=== PATIENT | male | born 1950 | race Caucasian/White ===

== ENCOUNTER → 2018-06-03 07:12 | Outpatient (CLI) | payer MEDICARE, MEDICAID, SELFPAY ==
--- NOTE | 2018-06-03 07:18 | CT_ITS ---
STUDY: LOW DOSE CT LUNG CANCER SCREENING REASON FOR EXAM: Male, 67 years old. History of 130 pack-year smoker. RADIATION DOSAGE (If Supplied By Facility): CTDIvol = ( 4.02 ) mGy, DLP = ( 133.91 ) mGycm TECHNIQUE: No contrast was administered. Low dose technique was utilized (average mAS-38 and kVp 120). 1.25 mm axial source images with a slice interval of 1.25-mm were reconstructed in lung windows. 2.5 mm axial source images with a slice interval of 2.5-mm were reconstructed in lung windows. 5.0 mm axial source images with a slice interval of 5.0-mm were reconstructed in soft tissue windows. Nodule measured using lung windows on PACS and/or independent workstation with automated measurement of minimum and maximum diameter. Nodule measurement reported as average diameter rounded to the nearest whole number. Growth is defined as an increase ins size of greater than 1.5 mm. COMPARISON: None. NODULES: No suspicious nodules seen. Emphysema: Diffuse emphysematous changes with cystic changes seen in the right upper lobe. Findings suggestive of mild scarring at the lung apices slightly worse on the left side. Mild increased markings at the lung bases suggestive of scarring. There is a 4.2 cm x 1.2 cm bulla in the lateral aspect of the right middle lobe as seen on axial image #165. Endobronchial lesion: Aorta: Coronary arteries: Prior CABG. Coronary artery calcification. Other chest and abdominal findings: Degenerative changes of the thoracic spine. CT/Low Dose CT Lung Screening IMPRESSION: Lung-RADS category 2 - Continue annual screening with LDCT in 12 months. IMPORTANT NOTES FOR USE: ACR Lung-RADS Version 1.0 Assessment Categories Release Date: October 12, 2013 Category: Coded 0-4 bases on nodule(s) with highest degree of suspicion. Negative screen is defined as categories 1 and 2; a positive screen is defined as categories 3 and 4. Category 3 and 4A nodules that are unchanged on interval CT should be coded as category 2, and individuals returned to screening in 12 months. Category 4X: Category 3 or 4 nodules with additional imaging findings that increase the suspicion of lung cancer, such as spiculation, GGN that doubles in size in 1 year, enlarged lymph notes, etc. Category Modifiers: S (significant finding unrelated to lung cancer) and C (prior history of treated lung cancer) may be added to the 0-4 Lung-RADS Electronically Signed: Randell Foster MD at 15:18 EST Tel [phone], Service support ,
--- OUTSIDE RECORDS SUMMARY | 2018-09-04 11:54 | XMS RPT_ITS ---
:1950 Author Organization OHIP Care Team Providers Name Role Phone MELO WHEELER MD Admitting Unavailable MELO WHEELER MD Attending Unavailable MELO WHEELER MD Primary Care Unavailable RICK SCHULTZ MD Referring Unavailable RICK SCHULTZ MD Consulting Unavailable PROVIDER, UNKNOWN Consulting Unavailable PROVIDER, UNKNOWN Consulting Unavailable PROVIDER, UNKNOWN Consulting Unavailable MALDONADO BLANCO MD Admitting Unavailable MALDONADO BLANCO MD Attending Unavailable MALDONADO BLANCO MD Primary Care Unavailable MALDONADO BLANCO MD Consulting Unavailable PROVIDER, UNKNOWN Consulting Unavailable PROVIDER, UNKNOWN Consulting Unavailable PROVIDER, UNKNOWN Consulting Unavailable Melo Marquez Attending Unavailable Melo Marquez Referring Unavailable MALDONADO BLANCO Primary Care Unavailable PROBLEMS PROBLEMS DATE TYPE CONDITION / CODE ATTENDING STATUS SOURCE 03/16/2018 Admitting Chronic MELO WHEELER Diagnosis obstructive [facility] with (acute) Repository exacerbation / J441(ICD-10) 03/16/2018 Principle Chronic MELO WHEELER Diagnosis obstructive [facility] with (acute) Repository exacerbation / J441(ICD-10) 03/16/2018 Secondary Chronic ischemic MELO WHEELER Diagnosis [facility] I259([facility]-10[facility] Repository PROCEDURES PROCEDURES No Procedure Records FoundRESULTS RESULTS LOW DOSE CT LUNG Observed: 06/03/2018 Status: F Source: [place] [facility]CREEN[facility] 7:18 AM [facility] REPOSITORY [facility] Imaging Services [address] [place] [address] Lung Screening MR#: [id number] Acct: [id number] Name: BAKARI NOGUEIRA Rep #: [id number] : 1950 M 67 From: Randell Foster MD PCP: Maldonado Blanco Status: REG CLI Study: Low Dose CT Lung Screening Date of Exam: 06/03/18 Exam# [id number] Ordering Dr: Melo Marquez MD STUDY: LOW DOSE CT LUNG CANCER SCREENING REASON FOR EXAM: Male, 67 years old. History of 130 pack- year smoker. RADIATION DOSAGE (If Supplied By Facility): CTDIvol = ( 4.02 ) mGy, DLP = ( 133.91 ) mGycm TECHNIQUE: No contrast was administered. Low dose technique was utilized (average mAS-38 and kVp 120). 1.25 mm axial source images with a slice interval of 1.25- mm were reconstructed in lung windows. 2.5 mm axial source images with a slice interval of 2.5-mm were reconstructed in lung windows. 5.0 mm axial source images with a slice interval of 5.0-mm were reconstructed in soft tissue windows. Nodule measured using lung windows on PACS and/or independent workstation with automated measurement of minimum and maximum diameter. Nodule measurement reported as average diameter rounded to the nearest whole number. Growth is defined as an increase ins size of greater than 1.5 mm. COMPARISON: None. NODULES: No suspicious nodules seen. Emphysema: Diffuse emphysematous changes with cystic changes seen in the right upper lobe. Findings suggestive of mild scarring at the lung apices slightly worse on the left side. Mild increased markings at the lung bases suggestive of scarring. There is a 4.2 cm x 1.2 cm bulla in the lateral aspect of the right middle lobe as seen on axial image #165. Endobronchial lesion: Aorta: Coronary arteries: Prior CABG. Coronary artery calcification. Other chest and abdominal findings: Degenerative changes of the thoracic spine. CT/Low Dose CT Lung Screening IMPRESSION: Lung-RADS category 2 - Continue annual screening with LDCT in 12 months. IMPORTANT NOTES FOR USE: ACR Lung-RADS Version 1.0 Assessment Categories Release Date: October 12, 2013 Category: Coded 0-4 bases on nodule(s) with highest degree of suspicion. Negative screen is defined as categories 1 and 2; a positive screen is defined as categories 3 and 4. Category 3 and 4A nodules that are unchanged on interval CT should be coded as category 2, and individuals returned to screening in 12 months. Category 4X: Category 3 or 4 nodules with additional imaging findings that increase the suspicion of lung cancer, such as spiculation, GGN that doubles in size in 1 year, enlarged lymph notes, etc. Category Modifiers: S (significant finding unrelated to lung cancer) and C (prior history of treated lung cancer) may be added to the 0-4 Lung-RADS Electronically Signed: Randell Foster MD at 15:18 EST Tel [phone], Service support , CC: Maldonado Blanco; Melo Marquez MD Sr. Manager Marketing: Signed PULMONARY FUNCTION Observed: 04/21/2018 Status: F Source: [facility] 10:17 [facility] PULMONARY FUNCTION STUDY NAME NUMBER SEX AGE ADMIT DISC TYPE MED.RECORD# [place] BAKARI [id number] M 67 04/21/18 04/21/18 O/P [id number] ROOM: DATE OF :1950 PHYSICIAN NO.:[id number] PHYSICIAN NAME:Tabitha Blanco M.D. PHYSICIAN: The FEV1 is 1.63 liters or 53% of predicted. With bronchodilators, this improved by 14% or 220 mL to 1.85 liters or 60% of predicted. The ratio is 44% at best. Lung volumes show mild hyperinflation with increased total lung capacity to 119% of predicted. The RV/TLC ratio is slightly increased to 50%. Diffusion capacity is normal when corrected to alveolar volume. IMPRESSION: This study is consistent with a moderately severe obstructive abnormality, GOLD class II, with mild hyperinflation and air trapping and preserved diffusion capacity. In addition, a significant reactive airway disease component is present. Dictated By: Balaji Beth MD 04/23/18 08:08 JOB #: [id number] Transcribed By: liban 04/23/18 14:55 Electronically signed by: Tabitha Beth M.D. 05/15/18 17:50 PULMONARY FUNCTION STUDY JERO Ring DISCHARGE SUMMARY Observed: 03/19/2018 Status: F Source: [facility] 1:06 PM [facility] DISCHARGE SUMMARY NAME ACCOUNT SEX AGE ADMIT DISCHARGE PT MED. RECORD# NUMBER DATE DATE TYPE BAKARI NOGUEIRA [id number] Christiano 67 03/16/18 03/18/18 1 W [id number] ROOM: [facility] DATE OF : 1950 DICTATING PHYSICIAN: Melo Wheeler FINAL DIAGNOSES: 1. Chronic obstructive pulmonary disease exacerbation. 2. Chronic ischemic heart disease. 3. Anxiety. 4. Hypertension. 5. History of skin cancer with recent skin biopsy of the nose and reconstruction. 6. History of gastroesophageal reflux disease. HOSPITAL COURSE: Mr. Bakari Nogueira was admitted with COPD exacerbation. The patient has been treated with steroids as well as antibiotics. He is being sent home on 40 mg of prednisone daily and this may be tapered as his outpatient doctor sees fit. The patient is leaving with a prescription for azithromycin as well. No complications were noted during this stay. MEDICATIONS ON DISCHARGE: Please refer to the medicine reconciliation. DISCHARGE INSTRUCTIONS/PLAN: Diet; as tolerated. Activity to tolerance. Followup; he will see his primary physician in follow up who is Dr. Blanco. Dictated By: Melo Wheeler MD 03/18/18 14:34 JOB #: [id number] Transcribed By: иван 03/19/18 08:12 Electronically signed by: Tabitha Wheeler M.D. 03/19/18 13:06 Page 1 of 1 BAKARI NOGUEIRA Discharge Summary CBC Collected: 03/18/2018 Status: F Source: [facility] 5:25 AM [facility] TYPE CODE TESTS RESULT OUT OF RANGE REFERENCE UNITS LAB CBC(LOINC) CBC Result Comment: CBC-COMPLETE BLOOD COUNT LAB WBC(LOINC) 4.5 - 10.8 x 10EE3/UL WBC High 11.5 LAB RBC(LOINC) 4.50 - x 10EE6/UL 6.00 RBC 4.95 LAB HEMOGLOBIN(LOINC 13.0 - g/dl ) 17.5 HEMOGLOBIN 15.4 LAB HEMATOCRIT(LOINC 40.0 - % ) 52.0 HEMATOCRIT 43.5 LAB MCV(LOINC) 81 - 98 fl MCV 88 LAB MCH(LOINC) 27 - 33 pg MCH 31 LAB MCHC(LOINC) 32 - 36 X10 3 MCHC 35 LAB RDW/CV(LOINC) 12.0 - % 15.6 RDW/CV 13.6 LAB PLATELET(LOINC) 150 - 450 x10EE3/UL PLATELET 195 LAB MPV(LOINC) 6.4 - 10.5 fl MPV 8.3 Result Comment: AUTOMATED DIFFERENTIAL LAB NEUT %(LOINC) 46.0 - 76.0 % NEUT % 57.4 LAB LYMPH %(LOINC) 20.0 - 45.0 % LYMPH % 29.6 LAB MONOS %(LOINC) 0.0 - 10.0 % MONOS % 6.3 LAB EO %(LOINC) 0.0 - 7.0 % EO % 6.2 LAB BASO %(LOINC) 0.0 - 2.0 % BASO % 0.5 LAB Lymph #(LOINC) 0.80 - 2.80 x10EE3/U L Lymph # High 3.40 LAB Neut #(LOINC) 1.50 - 7.10 x10EE3/U L Neut # 6.60 LAB Sutter #(LOINC) 0.20 - 1.00 x10EE3/U L Sutter # 0.70 LAB EO #(LOINC) 0.00 - 0.50 x10EE3/U L EO # High 0.70 LAB Baso #(LOINC) 0.00 - 0.10 x10EE3/U L Baso # 0.10 LAB MANUAL DIFF(LOINC) MANUAL DIFF N/A LAB MORPHOLOGY(LOINC ) MORPHOLOGY N/A Result Comment: {CD] Performed By: #### [id number] #### [facility],[address] [place] [address] CMP WITH EGFR Collected: 03/18/2018 Status: F Source: [facility] 5:25 AM [facility] REPOSITORY TYPE CODE TESTS RESULT OUT OF RANGE REFERENCE UNITS LAB CMP with eGFR(INC) CMP with eGFR Result Comment: COMPREHENSIVE METABOLIC PANEL LAB SODIUM(LOINC) 136 - 145 mmol/l SODIUM 138 LAB POTASSIUM(LOINC) 3.5 - 5.1 mmol/L POTASSIUM 4.1 LAB CHLORIDE(LOINC) 98 - 107 mmol/L CHLORIDE 102 LAB CO2(LOINC) 21.0 - mmol/L 31.0 CO2 27.5 LAB GLUCOSE(LOINC) 74 - 106 mg/dl GLUCOSE 101 LAB BUN(LOINC) 6 - 20 mg/dl BUN High 27 LAB CREATININE(LOINC) 0.7 - 1.3 mg/dl CREATININE 1.1 LAB AST/SGOT(LOINC) 13 - 39 U/L AST/SGOT 21 LAB ALK PHOS(LOINC) 38 - 126 U/L ALK PHOS 44 LAB CALCIUM(LOINC) 8.6 - mg/dl 10.2 CALCIUM 9.6 LAB TOTAL 6.4 - 8.3 g/dl PROTEIN(LOINC) TOTAL PROTEIN 6.4 LAB ALBUMIN(LOINC) 3.4 - 4.8 g/dL ALBUMIN 3.8 LAB GLOBULIN(LOINC) 1.5 - 3.8 G/DL GLOBULIN 2.6 LAB A/G RATIO(LOINC) 0.9 - 1.6 A/G RATIO 1.5 LAB TOTAL BILI(LOINC) 0.0 - 1.5 mg/dl TOTAL BILI 0.4 LAB B/C RATIO(LOINC) 0 - 30 ratio B/C RATIO 25 LAB ALT/SGPT(LOINC) 10 - 40 U/L ALT/SGPT 31 LAB ANION GAP(LOINC) 10 - 20 mmol/L ANION GAP 13 LAB AGE(LOINC) years AGE 67 LAB eGFR(LOINC) 60 - 999 ML/MINUTE eGFR >60 LAB eGFR(AA)(LOINC) 60 - 999 ML/MINUTE eGFR(AA) >60 Result Comment: ACCORDING TO THE NATIONAL KIDNEY DISEASE EDUCATION PROGRAM(NKDE), A NORMAL eGFR IS A VALUE GREATER THAN OR EQUAL TO 60 ML/MIN/1.73 SQ METERS. CHRONIC KIDNEY DISEASE: <60mL/MIN/1.73 SQ METERS KIDNEY FAILURE: <15mL/MIN/1.73 SQ METERS THIS TEST SHOULD ONLY BE USED FOR PATIENTS 18 YEARS OF AGE AND OLDER. Performed By: #### [id number] #### [facility],[address] [place] [address] LIPID PROFILE Collected: 03/18/2018 Status: F Source: [facility] 5:25 AM [facility] REPOSITORY TYPE CODE TESTS RESULT OUT OF REFERENCE UNITS RANGE LAB LIPID PROFILE(LOIN C) LIPID PROFILE Result Comment: LIPID PROFILE LAB TRIGLYCERIDE(LOINC) 0 - 150 mg/dl High TRIGLYCERIDE 154 LAB CHOLESTEROL(LOINC) 0 - 200 mg/dl CHOLESTEROL 113 LAB HDL(LOINC) 40 - 60 mg/dl HDL Low 35 LAB CHOL/HDL(LOINC) 0.0 - 5.0 CHOL/HDL 3.2 LAB LDL(LOINC) 0 - 129 mg/dl LDL 47 Performed By: #### [id number] #### [facility],[address] [place] [address] PROGRESS NOTE Observed: 03/17/2018 Status: F Source: [facility]USS 8:01 PM [facility] PROGRESS NOTE NAME ACCOUNT SEX AGE ADMIT DISCHARGE PT MED. RECORD# NUMBER DATE DATE TYPE JERO [id number] Christiano 67 03/16/18 1 BAKARI Grant [id number] ROOM: [facility] DATE OF : 1950 DICTATING PHYSICIAN: Maldonado Blanco DATE OF SERVICE: March 17, 2018 SUBJECTIVE: The patient was feeling overall better; although, when he was walking the hallway by the time he came back to his room he was wheezing and he was short of breath. His oxygen saturation was 93%. He denies any chest pain. OBJECTIVE: No acute distress, well-developed, well-nourished. Blood pressure is 133/80, heart rate 66, respiratory rate 16, temperature 98.4, oxygen saturation 92% on room air. Skin is warm and dry. Lungs: Symmetrical, equal lung expansion, diminished breath sounds bilaterally, clear to auscultation, respiratory mildly increased. Heart is regular rate and rhythm. DIAGNOSTIC DATA: Laboratory data: WBCs 11.3, hemoglobin 15.3, hematocrit 45.1, platelet count 203,000. Sodium 139, potassium 3.8, BUN 27, creatinine 1.0, glucose 103. ASSESSMENT/PLAN: 1. Chronic obstructive pulmonary disease exacerbation, gradually improving. Continue current treatment with ceftriaxone, Zithromax, prednisone, and encourage Acapella and incentive spirometer. Also, we will support with oxygen supplementation to maintain O2 saturation more than 92%. 2. Lower respiratory tract infection likely the reason for the patient's chronic obstructive pulmonary disease exacerbation. We will continue current treatment with ceftriaxone and Zithromax. 3. Prerenal azotemia today with a relative hypokalemia. We will give the patient potassium supplementation with a goal potassium more than 4. 4. Above was discussed with the patient. Dictated By: Maldonado Blanco MD 03/17/18 13:04 JOB #: [id number] Transcribed By: am 03/17/18 14:53 Electronically signed by: Tabitha Blanco M.D. 03/17/18 20:01 Page 1 of 2 BAKARI NOGUEIRA Progress Note Page 2 of 2 BAKARI NOGUEIRA Progress Note HISTORY AND PHYSICAL Observed: 03/17/2018 Status: F Source: [facility] 10:47 AM [facility] HISTORY & PHYSICAL NAME ACCOUNT SEX AGE ADMIT DISCHARGE PT MED. RECORD# NUMBER DATE DATE TYPE JERO [id number] Christiano 67 03/16/18 1 BAKARI Grant [id number] ROOM: [facility] DATE OF : [birth year] DICTATING PHYSICIAN: Maldonado Blanco CHIEF COMPLAINT: Increasing cough and shortness of breath. HISTORY OF PRESENT ILLNESS: The patient is a pleasant 67-year-old gentleman with a past medical history significant for COPD who was in his usual state of health until about a month ago when he started having intermittent cough. Initially, it was nonproductive, but then became productive of thick whitish and sometimes matthew sputum, associated with increasing wheezing, increasing shortness of breath, and he became very uncomfortable. He presented to the emergency room for evaluation. He mentioned a prior history for bronchitis for which he had 2 left-over tablets of azithromycin that he took last night. He did not have any fever or chills. He had no sore throat, but he had some burning sensation with his throat after coughing. He denies any chest pain. He was admitted for further evaluation and treatment. PAST MEDICAL HISTORY: (1) COPD. I reviewed the patient's prior records and the only pulmonary function that I was able to find was done back in 2008 that showed severe obstructive abnormality with maintained diffusion capacity consistent with mild to severe chronic bronchitis. There was significant reactive airway disease component. (2) Anxiety. (3) Chronic ischemic heart disease. (4) Low HDL. (5) Depression. (6) Hypercholesterolemia. (7) Hypertension. (8) Skin cancer with recent skin biopsy with reconstruction. (9) Ventral hernia. (10) Tubular adenomatous polyps of the colon. (11) GERD. (12) Previous history of blood transfusion during his open heart surgery in 2003. PAST SURGICAL HISTORY: (1) Recent skin reconstruction of the nose after removing skin cancer. (2) Coronary artery bypass graft in 2003. (3) Left arthroscopic knee surgery. (4) Umbilical hernia repair. (5) Rectal fissure surgery. MEDICATIONS: Current medications at home: (1) Losartan/hydrochlorothiazide 100/12.5 mg daily. (2) Viagra 100 mg p.r.n. (3) Zetia 10 mg daily. (4) Crestor 40 mg at bedtime. (5) Dexilant 30 mg daily. (6) Atenolol 12.5 mg daily. (7) Aspirin 81 mg daily. ALLERGIES: Intolerant to Altace. FAMILY HISTORY: Mother at age 80 from colon cancer. Father at age 62 from myocardial infarction. He also had emphysema and cancer. Sister with carotid endarterectomy. Brother with cancer. Page 1 of 3 BAKARI NOGUEIRA History & Physical SOCIAL HISTORY: The patient has 3 children. He used to smoke 3 packs of cigarettes per day for about 40 years but quit in 2003. He occasionally drinks alcohol. REVIEW OF SYSTEMS: The patient denies any dizziness, lightheadedness or headaches. He denies any chest pain. He complains of shortness of breath, wheezing, cough, productive to thick whitish and matthew sputum. He denies any GI or symptoms. He denies any lower extremity edema. The rest of the review of systems were discussed with the patient and they were negative. PHYSICAL EXAMINATION GENERAL APPEARANCE: The patient was lying down in bed comfortably in no acute distress. She is well-developed, well-nourished. VITAL SIGNS: Blood pressure 160/89, heart rate 78, respiratory rate 18, temperature 98.2. Oxygen saturation 92% on room air. Weight 245 pounds with a BMI of 34.17 kg/m2. SKIN: Skin is warm and dry. HEENT: Unremarkable. NECK: Supple. No nodes, no masses, no JVD, no carotid bruit, no thyroid enlargement. The patient has an area of bulging involving the right side of the neck that is soft, nontender and the patient did not notice the presence of that area in the past. LUNGS: Lungs are symmetrical. Equal lung expansion. Diminished breath sounds bilaterally. Clear to auscultation. Respiratory effort normal. HEART: Regular rate and rhythm. No murmurs, no gallops. ABDOMEN: Obese, soft, nontender. EXTREMITIES: No edema. NEUROLOGIC: The patient was alert and oriented x3. DIAGNOSTIC DATA: WBC 11.7, hemoglobin 16.6, hematocrit 49.8, platelets 205,000. D-dimer is 501. BNP 32, troponin 0.01. TSH 2.08. Sodium 139. Potassium 4.1. BUN 20, creatinine 1.0. Glucose 128. SGOT 25, SGPT 41. Alk phos 51, albumin 4.4. Total bilirubin 0.7. IMPRESSION/PLAN: 1. Chronic obstructive pulmonary disease exacerbation, likely secondary to lower respiratory tract infection. The patient was admitted to the medical surgical floor. He was started on prednisone 40 mg daily in addition to ceftriaxone and Zithromax. Page 2 of 3 BAKARI NOGUEIRA History & Physical We will provide oxygen supplementation to maintain O2 saturation more than 92%. The patient was encouraged to use the incentive spirometer and the Acapella. 2. Lower respiratory tract infection, likely the reason for the patient's chronic obstructive pulmonary disease exacerbation. As mentioned above, we will treat with ceftriaxone and Zithromax. 3. Right side of the neck, soft area, nontender. We will monitor progress and consider further workup including CT scan if it persists or if it becomes painful. 4. Obesity with BMI of 34.17 kg/m2, a complicating factor. 5. The rest of the medical problems are stable at this time. We will monitor the patient. 6. Hyperglycemia with blood sugar of 128. We will repeat in the a.m. and also will obtain a baseline A1c. 7. Above was discussed with the patient in detail. All questions were answered. He expressed understanding of the plan of care. Dictated By: Maldonado Blanco MD 03/16/18 19:07 JOB #: [id number] Transcribed By: [email or web address] 03/16/18 20:45 Electronically signed by: Tabitha Blanco M.D. 03/17/18 10:47 Update to H&P: [ ] No changes: I have examined the patient and reviewed the H&P and there are no changes. [ ] As previously dictated with the following changes: PHYSICIAN SIGNATURE: TIME: DATE: Page 3 of 3 BAKARI NOGUEIRA History & Physical CBC Collected: 03/17/2018 Status: F Source: [facility] 6:27 [facility] REPOSITORY TYPE CODE TESTS RESULT OUT OF RANGE REFERENCE UNITS LAB CBC(LOINC) CBC Result Comment: CBC-COMPLETE BLOOD COUNT LAB WBC(LOINC) 4.5 - 10.8 x 10EE3/UL WBC High 11.3 LAB RBC(LOINC) 4.50 - x 10EE6/UL 6.00 RBC 5.04 LAB HEMOGLOBIN(LOINC 13.0 - g/dl ) 17.5 HEMOGLOBIN 15.3 LAB HEMATOCRIT(LOINC 40.0 - % ) 52.0 HEMATOCRIT 45.1 LAB MCV(LOINC) 81 - 98 fl MCV 90 LAB MCH(LOINC) 27 - 33 pg MCH 30 LAB MCHC(LOINC) 32 - 36 X10 3 MCHC 34 LAB RDW/CV(LOINC) 12.0 - % 15.6 RDW/CV 13.5 LAB PLATELET(LOINC) 150 - 450 x10EE3/UL PLATELET 203 LAB MPV(LOINC) 6.4 - 10.5 fl MPV 8.4 Result Comment: AUTOMATED DIFFERENTIAL LAB NEUT %(LOINC) 46.0 - 76.0 % NEUT % 59.2 LAB LYMPH %(LOINC) 20.0 - 45.0 % LYMPH % 25.1 LAB MONOS %(LOINC) 0.0 - 10.0 % MONOS % 8.0 LAB EO %(LOINC) 0.0 - 7.0 % EO % High 7.4 LAB BASO %(LOINC) 0.0 - 2.0 % BASO % 0.3 LAB Lymph #(LOINC) 0.80 - 2.80 x10EE3/U L Lymph # 2.80 LAB Neut #(LOINC) 1.50 - 7.10 x10EE3/U L Neut # 6.70 LAB Sutter #(LOINC) 0.20 - 1.00 x10EE3/U L Sutter # 0.90 LAB EO #(LOINC) 0.00 - 0.50 x10EE3/U L EO # High 0.80 LAB Baso #(LOINC) 0.00 - 0.10 x10EE3/U L Baso # 0.00 LAB MANUAL DIFF(LOINC) MANUAL DIFF N/A LAB MORPHOLOGY(LOINC ) MORPHOLOGY N/A Result Comment: {CD] Performed By: #### [id number] #### [facility],[address] [place] [address] BMP WITH EGFR Collected: 03/17/2018 Status: F Source: [facility] 6:27 AM [facility] REPOSITORY TYPE CODE TESTS RESULT OUT OF RANGE REFERENCE UNITS LAB BMP with eGFR(LOINC) BMP with eGFR Result Comment: BASIC METABOLIC PANEL LAB SODIUM(LOINC) 136 - 145 mmol/l SODIUM 139 LAB POTASSIUM(LOINC) 3.5 - 5.1 mmol/L POTASSIUM 3.8 LAB CHLORIDE(LOINC) 98 - 107 mmol/L CHLORIDE 102 LAB CO2(LOINC) 21.0 - mmol/L 31.0 CO2 29.3 LAB GLUCOSE(LOINC) 74 - 106 mg/dl GLUCOSE 103 LAB BUN(LOINC) 6 - 20 mg/dl BUN High 27 LAB CREATININE(LOINC) 0.7 - 1.3 mg/dl CREATININE 1.0 LAB CALCIUM(LOINC) 8.6 - mg/dl 10.2 CALCIUM 9.5 LAB ANION GAP(LOINC) 10 - 20 mmol/L ANION GAP 12 LAB AGE(LOINC) years AGE 67 LAB eGFR(LOINC) 60 - 999 ML/MINUTE eGFR >60 LAB eGFR(AA)(LOINC) 60 - 999 ML/MINUTE eGFR(AA) >60 Result Comment: ACCORDING TO THE NATIONAL KIDNEY DISEASE EDUCATION PROGRAM(NKDE), A NORMAL eGFR IS A VALUE GREATER THAN OR EQUAL TO 60 ML/MIN/1.73 SQ METERS. CHRONIC KIDNEY DISEASE: <60mL/MIN/1.73 SQ METERS KIDNEY FAILURE: <15mL/MIN/1.73 SQ METERS THIS TEST SHOULD ONLY BE USED FOR PATIENTS 18 YEARS OF AGE AND OLDER. Performed By: #### [id number] #### [place] [id number] HGB A1C Collected: 03/17/2018 Status: F [facility] REPOSITORY TYPE CODE TESTS RESULT OUT OF RANGE REFERENCE UNITS LAB HGB 4.4 - 6.4 % A1C(LOINC) HGB A1C 5.7 Result Comment: {HB] {A1] Performed By: #### [id number] #### [address] [id number] TROPONIN Collected: 03/16/2018 Status: F [facility] REPOSITORY TYPE CODE TESTS RESULT OUT OF REFERENCE UNITS RANGE LAB TROPONIN 0.00 - 0.05 ng/ml I(LOINC) TROPONIN I 0.01 Result Comment: Elevated troponin (above the 99th percentile) usually indicates myocardial ischemia. Results must be interpreted within the clinical setting. 1.Non-ischemic pathology can also cause elevated troponin levels (e.g., acute pulmonary embolism, myocarditis, pericarditis, heart failure, intracranial injury, rhabdomyolisis, sepsis, shock and renal insufficiency). 2.Approximately 1% of healthy adults have elevated troponin levels. 3.Analytical false positive results rarely occur(due to multiple interferences such as heterophile antibodies). Performed By: #### [id number] #### [address] [address] TROPONIN Collected: 03/16/2018 Status: F Source: [facility] 1:40 PM [facility] REPOSITORY TYPE CODE TESTS RESULT OUT OF REFERENCE UNITS RANGE LAB TROPONIN 0.00 - 0.05 ng/ml I(LOINC) TROPONIN I 0.01 Result Comment: Elevated troponin (above the 99th percentile) usually indicates myocardial ischemia. Results must be interpreted within the clinical setting. 1.Non-ischemic pathology can also cause elevated troponin levels (e.g., acute pulmonary embolism, myocarditis, pericarditis, heart failure, intracranial injury, rhabdomyolisis, sepsis, shock and renal insufficiency). 2.Approximately 1% of healthy adults have elevated troponin levels. 3.Analytical false positive results rarely occur(due to multiple interferences such as heterophile antibodies). Performed By: #### [id number] #### [place] [id number] TROPONIN Collected: 03/16/2018 Status: F [facility] AM [facility] TYPE CODE TESTS RESULT OUT OF REFERENCE UNITS RANGE LAB TROPONIN 0.00 - 0.05 ng/ml I(LOINC) TROPONIN I 0.01 Result Comment: Elevated troponin (above the 99th percentile) usually indicates myocardial ischemia. Results must be interpreted within the clinical setting. 1.Non-ischemic pathology can also cause elevated troponin levels (e.g., acute pulmonary embolism, myocarditis, pericarditis, heart failure, intracranial injury, rhabdomyolisis, sepsis, shock and renal insufficiency). 2.Approximately 1% of healthy adults have elevated troponin levels. 3.Analytical false positive results rarely occur(due to multiple interferences such as heterophile antibodies). Performed By: #### [id number] #### [place] [id number] CBC Collected: 03/16/2018 Status: F [facility]:41 AM [facility] REPOSITORY TYPE CODE TESTS RESULT OUT OF RANGE REFERENCE UNITS LAB CBC(LOINC) CBC Result Comment: CBC-COMPLETE BLOOD COUNT LAB WBC(LOINC) 4.5 - 10.8 x 10EE3/UL WBC High 11.7 LAB RBC(LOINC) 4.50 - x 10EE6/UL 6.00 RBC 5.56 LAB HEMOGLOBIN(LOINC 13.0 - g/dl ) 17.5 HEMOGLOBIN 16.6 LAB HEMATOCRIT(LOINC 40.0 - % ) 52.0 HEMATOCRIT 49.8 LAB MCV(LOINC) 81 - 98 fl MCV 90 LAB MCH(LOINC) 27 - 33 pg MCH 30 LAB MCHC(LOINC) 32 - 36 X10 3 MCHC 33 LAB RDW/CV(LOINC) 12.0 - % 15.6 RDW/CV 13.4 LAB PLATELET(LOINC) 150 - 450 x10EE3/UL PLATELET 205 LAB MPV(LOINC) 6.4 - 10.5 fl MPV 8.9 Result Comment: AUTOMATED DIFFERENTIAL LAB NEUT %(LOINC) 46.0 - 76.0 % NEUT % High 80.1 LAB LYMPH %(LOINC) 20.0 - 45.0 % Low LYMPH % 11.9 LAB MONOS %(LOINC) 0.0 - 10.0 % MONOS % 3.1 LAB EO %(LOINC) 0.0 - 7.0 % EO % 4.7 LAB BASO %(LOINC) 0.0 - 2.0 % BASO % 0.2 LAB Lymph #(LOINC) 0.80 - 2.80 x10EE3/U L Lymph # 1.40 LAB Neut #(LOINC) 1.50 - 7.10 x10EE3/U L Neut # High 9.40 LAB Sutter #(LOINC) 0.20 - 1.00 x10EE3/U L Sutter # 0.40 LAB EO #(LOINC) 0.00 - 0.50 x10EE3/U L EO # High 0.60 LAB Baso #(LOINC) 0.00 - 0.10 x10EE3/U L Baso # 0.00 LAB MANUAL DIFF(LOINC) MANUAL DIFF N/A LAB MORPHOLOGY(LOINC ) MORPHOLOGY N/A Result Comment: {CD] Performed By: #### [id number] #### [facility],[address] [place], [place] [id number] TROPONIN Collected: 03/16/2018 Status: F Source: [facility] 8:41 AM [facility] REPOSITORY TYPE CODE TESTS RESULT OUT OF REFERENCE UNITS RANGE LAB TROPONIN 0.00 - 0.05 ng/ml I(LOINC) TROPONIN I 0.01 Result Comment: Elevated troponin (above the 99th percentile) usually indicates myocardial ischemia. Results must be interpreted within the clinical setting. 1.Non-ischemic pathology can also cause elevated troponin levels (e.g., acute pulmonary embolism, myocarditis, pericarditis, heart failure, intracranial injury, rhabdomyolisis, sepsis, shock and renal insufficiency). 2.Approximately 1% of healthy adults have elevated troponin levels. 3.Analytical false positive results rarely occur(due to multiple interferences such as heterophile antibodies). Performed By: #### [id number] #### [facility],[address] [place] [address] CMP WITH EGFR Collected: 03/16/2018 Status: F Source: [facility] 8:41 AM [facility] REPOSITORY TYPE CODE TESTS RESULT OUT OF RANGE REFERENCE UNITS LAB CMP with eGFR(LOINC) CMP with eGFR Result Comment: COMPREHENSIVE METABOLIC PANEL LAB SODIUM(LOINC) 136 - 145 mmol/l SODIUM 139 LAB POTASSIUM(LOINC) 3.5 - 5.1 mmol/L POTASSIUM 4.1 LAB CHLORIDE(LOINC) 98 - 107 mmol/L CHLORIDE 100 LAB CO2(LOINC) 21.0 - mmol/L 31.0 CO2 30.2 LAB GLUCOSE(LOINC) 74 - 106 mg/dl GLUCOSE High 128 LAB BUN(LOINC) 6 - 20 mg/dl BUN 20 LAB CREATININE(LOINC) 0.7 - 1.3 mg/dl CREATININE 1.0 LAB AST/SGOT(LOINC) 13 - 39 U/L AST/SGOT 25 LAB ALK PHOS(LOINC) 38 - 126 U/L ALK PHOS 51 LAB CALCIUM(LOINC) 8.6 - mg/dl 10.2 CALCIUM 10.0 LAB TOTAL 6.4 - 8.3 g/dl PROTEIN(LOINC) TOTAL PROTEIN 7.6 LAB ALBUMIN(LOINC) 3.4 - 4.8 g/dL ALBUMIN 4.4 LAB GLOBULIN(LOINC) 1.5 - 3.8 G/DL GLOBULIN 3.2 LAB A/G RATIO(LOINC) 0.9 - 1.6 A/G RATIO 1.4 LAB TOTAL BILI(LOINC) 0.0 - 1.5 mg/dl TOTAL BILI 0.7 LAB B/C RATIO(LOINC) 0 - 30 ratio B/C RATIO 20 LAB ALT/SGPT(LOINC) 10 - 40 U/L ALT/SGPT High 41 LAB ANION GAP(LOINC) 10 - 20 mmol/L ANION GAP 13 LAB AGE(LOINC) years AGE 67 LAB eGFR(LOINC) 60 - 999 ML/MINUTE eGFR >60 LAB eGFR(AA)(LOINC) 60 - 999 ML/MINUTE eGFR(AA) >60 Result Comment: ACCORDING TO THE NATIONAL KIDNEY DISEASE EDUCATION PROGRAM(NKDE), A NORMAL eGFR IS A VALUE GREATER THAN OR EQUAL TO 60 ML/MIN/1.73 SQ METERS. CHRONIC KIDNEY DISEASE: <60mL/MIN/1.73 SQ METERS KIDNEY FAILURE: <15mL/MIN/1.73 SQ METERS THIS TEST SHOULD ONLY BE USED FOR PATIENTS 18 YEARS OF AGE AND OLDER. Performed By: #### [id number] #### [place] [id number] BNP (B-TYPE NATRIURETIC Collected: 03/16/2018 Status: F Source: [facility]) 8:41 [facility] TYPE CODE TESTS RESULT OUT OF RANGE REFERENCE UNITS LAB BNP(LOINC) 1 - 100 pg/ml BNP 32 Performed By: #### [id number] #### [place] [id number] D-DIMER, QUANTITATIVE Collected: 03/16/2018 Status: F Source: [facility] 8:41 [facility] TYPE CODE TESTS RESULT OUT OF REFERENCE UNITS RANGE LAB D-DIMER, QUANTITATI VE(LOINC) D-DIMER, QUANTITATIVE Result Comment: QUANT D-DIMER LAB D-DIMER 0 - 230 ng/ml QUANT(LOINC) High D-DIMER QUANT 501 Performed By: #### [id number] #### [place] [id number] TSH Collected: 03/16/2018 Status: F Source: [facility] 8:41 [facility] TYPE CODE TESTS RESULT OUT OF RANGE REFERENCE UNITS LAB TSH(LOINC) 0.34 - 5.60 uIU/ml TSH 2.08 Performed By: #### [id number] #### [place] [address] EMERGENCY REPORT Observed: 03/16/2018 Status: F Source: [facility] 7:41 [facility] EMERGENCY ROOM REPORT NAME ACCOUNT SEX AGE ADMIT DISCHARGE PT MED. RECORD# NUMBER DATE DATE TYPE JERO, [id number] Christiano 67 03/16/18 1 BAKARI Grant [id number] ROOM: 307MO DATE OF : 1950 DICTATING PHYSICIAN: Nadya Horner CHIEF COMPLAINT: Cough and shortness of breath. HISTORY OF PRESENT ILLNESS: This is a 67-year-old gentleman with extensive remote past medical history of smoking, 40 pack year history, presenting for evaluation of cough, wheezing, and shortness of breath. The patient states that he has had some wheezing and shortness of breath over the last week to 2 weeks. He states that over the last 5 to 7 days he has developed a thick cough productive of yellow to brown phlegm. He states that over the last 24 hours he has developed these coughing fits at home where he feels as if he is unable to catch his breath and pass out because of how hard he is coughing. The patient states that he does not smoke any longer. He states he does have a history of bronchitis and is concerned that this is what was happening so he took 2 tablets of azithromycin last night, which he had left over at home from a previous prescription. He denies fever or chills. He denies any chest pain other than a burning sensation in his throat after these coughing fits. He denies any abdominal pain, nausea or vomiting. The patient denies any history of heart failure, denies any recent weight gain. PAST MEDICAL HISTORY: Significant for hypertension, hyperlipidemia, and remote smoking history. The patient without formal diagnosis of COPD. ALLERGIES: The patient is allergic to Altace. PHYSICAL EXAMINATION: This is a patient who appears to be of stated age sitting comfortably on the cot, noted to be in no acute distress. Vitals: Blood pressure is 160/113, pulse 94 beats per minute, respiratory rate 20. The patient noted to be 87% on room air, 2 liters require to maintained saturation to 95%. The patient is afebrile at 99.1. The patient's equals are equal, round, and reactive to light and extraocular movements are intact. Oropharynx is clear, no exudate or erythema. He does have a large scar to the nose, which he states he is status post reconstruction from skin cancer. The patient without JVD, full range of motion without eliciting pain. Heart is regular rate and rhythm, no murmurs, rubs, or gallops. The patient has end-expiratory wheezing to all lung greenwood. No rales or rhonchi appreciated. No chest tenderness on examination. Abdomen is protuberant, but soft and without tenderness. No rebound or guarding. The patient is moving all 4 extremities. He has good capillary refill and strong pulses to extremities x4. DIAGNOSTIC DATA: Chest x-ray obtained that shows hyperinflation without acute Page 1 of 2 BAKARI NOGUEIRA Emergency Room Report consolidation. EMERGENCY DEPARTMENT COURSE AND TREATMENT: This is a 67-year-old gentleman who presents for evaluation of cough and shortness of breath. The patient was found to be hypoxic on room air on initial arrival. He was placed on 2 liters by nasal cannula with improved pulse oximetry. The patient was given DuoNeb x2 and prednisone in the emergency department. Chest x-ray obtained that shows findings as above. On reevaluation, the patient does feel somewhat improved. We did attempt weaning from oxygen in the emergency department; however, the patient was noted to desaturation again to 87% on room air. DIAGNOSES: 1. Hypoxia. 2. Bronchitis. PLAN/DISPOSITION: At this time, we did discuss recommendation for admission for antibiotics, scheduled breathing treatments, and steroids. The patient was agreeable with this plan. He will be started on Rocephin and azithromycin in the emergency department. Admitting hospitalist called who did accept admission at this time. The patient to be admitted to [facility] in stable condition. Dictated By: Nadya Horner MD 03/16/18 07:20 JOB #: [id number] Transcribed By: am 03/16/18 12:09 Electronically signed by: E-SIGN: DR. NADYA HORNER M.D. 03/25/18 03:18 Page 2 of 2 BAKARI NOGUEIRA Emergency Room Report EMERGENCY REPORT Observed: 03/16/2018 Status: F Source: [facility] 7:41 AM [facility] EMERGENCY ROOM REPORT NAME ACCOUNT SEX AGE ADMIT DISCHARGE PT [facility]. RECORD# NUMBER DATE DATE TYPE JERO [id number] Christiano 67 03/16/18 1 BAKARI Grant [id number] ROOM: [facility] DATE OF : 1950 DICTATING PHYSICIAN: Nadya Horner CHIEF COMPLAINT: Shortness of breath and cough. HISTORY OF PRESENT ILLNESS: This is a 67-year-old gentleman with an extensive past medical history of smoking, recently quit, but prior to that, a 40 pack year history, presenting for evaluation of cough and shortness of breath. Patient states that he has felt as if he was wheezing for a while and elaborates that it has been 1 month. He states that he has had progressively worsening shortness of breath over the last couple days with significant cough productive of thick yellow to brown phlegm. He denies fevers or chills. He states that over the last 24 hours, he has had coughing fits where he feels as if he is unable to catch his breath, so he presents to the emergency department today. He complains of chest burning after coughing fits, however, no chest pain, between coughing fits. He states that he previously had an inhaler, but lost this a while ago and has not been taking anything to try and alleviate his symptoms other than dccx-iln-hoyviqo decongestants. He state that last night he took 2 azithromycin tablets that he has left over from a previous prescription he believes from last year when he had bronchitis. Patient denies abdominal pain, nausea, or vomiting. Denies any prior history of heart failure. Denies any recent weight gain. PAST MEDICAL HISTORY: Significant for hypertension, hyperlipidemia, smoking, history. ALLERGIES: Patient is allergic to Altace. PHYSICAL EXAMINATION: Patient who appears to be stated age sitting comfortably on the cot, noted to be in no acute distress. Vitals: Blood pressure 160/113, pulse of 94, respirations are 20, patient noted to be 87% on room air, improved to 99% on 2 L by nasal cannula. Patient afebrile at 99.1. Dictated By: Nadya Horner MD 03/16/18 07:16 JOB #: [id number] Transcribed By: иван 03/16/18 12:30 Electronically signed by: E-SIGN: DR. NADYA HORNER M.D. Page 1 of 2 BAKARI NOGUEIRA Emergency Room Report 03/25/18 03:24 Page 2 of 2 BAKARI NOGUEIRA Emergency Room Report CHEST 2 VIEWS Observed: 03/16/2018 Status: F Source: [facility] 6:43 AM [place] [address] Patient: BAKARI NOGUEIRA. Phone#: : [phone] Age: 67 Gender: M Pt. Type: ER Account: [id number] Location: 052 Ordering: NADYA HORNER Exam Date: 03/16/2018/6:08 Family Phys: RICK SCHULTZ Charge Code: 127150 Physician: [place] Order #: [id number] DLP Dose#: PROCEDURE: X-RAY CHEST 2 VIEWS COMPARISON: None. INDICATIONS: Cough FINDINGS: LUNGS: Mild hyperaeration of the lung greenwood. No significant pulmonary parenchymal abnormalities. VASCULATURE: Normal. Unremarkable pulmonary vasculature. CARDIAC: Normal. No cardiac silhouette abnormality or cardiomegaly. MEDIASTINUM: Normal. No visible mass or adenopathy. PLEURA: Normal. No effusion or pleural thickening. BONES: Degenerative changes of the spine. Median sternotomy wires are present. OTHER: Negative. CONCLUSION: 1. No acute pulmonary parenchymal abnormality. 2. Hyperaeration of the lung greenwood, correlate for COPD. Dictated by: Karla Castellon MD on 03/16/2018 at 12:18 Approved by: Karla Castellon MD on 03/16/2018 at 12:18 ALLERGIES ALLERGIES DATE TYPE / CODE NAME / CODE REACTION SEVERITY SOURCE Drug ALTACE/87986 Moderate Alejo Pomerejorje Allergy/4160 146(RXNORM) (Severity [facility] [address]13(SNOMED Modifier) Repository CT) (Qualifier Value) ENCOUNTERS ENCOUNTERS ADMIT/DISCHARGE ACCOUNT ADMITTING ENCOUNTER LOCATION SOURCE NUMBER CLASS 06/03/2018 [id number] Ambulatory Lucrecia Singer 8 [facility] ing:CT Repository 04/21/2018/ [id number] [facility], Ambulatory Alejo Russ 8 MALDONADO CRUM [facility] Repository 03/16/2018/ [id number] [place], Inpatient BuildinR Alejo Russ 8 MELO CRUM Encounter oom: [address] [place] [address] Repository PAYERS PAYERS ENCOUNTER GUARANTOR PAYER SUBSCRIBER SOURCE 06/03/2018 BAKARI Grant Primary BAKARI Singer [id number] Insurance:MEDICARE RULEVILLEDOB: [address], PART A BPolicy Number: [id number] [address]Hyx: [id number] Repository Date:2018-05-27 () 06/03/2018 Secondary BAKARI Singer Insurance:MEDICAIDPoli MILLERDOB: Community cy Number: [id number] [id number] Repository Date:2018-05-27 06/03/2018 Tertiary NOT GIVENUNK [place] Insurance:SELF PAY [facility]: Effective Repository Date:2018-05-27 04/21/2018 BAKARI Primary Insurance:500 BAKARI Russ MILLERDOB: MEDICARE MILLERDOB: [facility] [id number] [facility] [id number] [facility] TR Number: 9 [facility] Repository [address] [place] [id number] [address]Wos: Date:Plan Name:[facility] [id number] () 03/16/2018 BAKARI Primary BAKARI Russ MILLERDOB: Insurance:MEDICARE MILLERDOB: [facility] [id number] [facility] [id number] [facility] TR Number: 9 [facility] Repository [address] [place] [id number] [address]Krr: Date:Plan Name: [id number] ()
== END ==
PROVIDERS: Family Provider Internal Medicine; PCP Internal Medicine; Referring Provider Internal Medicine Pulmonary Disease; Visit Provider Internal Medicine Pulmonary Disease
DX: Z12.2 Encounter for screening for malignant neoplasm of respiratory organs (principal); Z87.891 Personal history of nicotine dependence
CPT/HCPCS: G0297

== ENCOUNTER → 2018-10-14 08:42 | Outpatient (CLI) | payer OTHER, SELFPAY ==
--- NOTE | 2018-10-14 09:02 | PR.HP_ITS ---
History of Present Illness Arrival date:: 10/14/18 Arrival time:: 09:02 Date of Referral:: 10/08/18 Date of Evaluation: 10/14/18 Referring Physician: ADELSO BRINK Primary Diagnosis: COPD, EMPHYSEMA mMRC Breathless Scale: When is the patient short of breath? Y/N Grade: Description of Breathlessness: 0 I only get breathless with strenuous exercise. 1 I get short of breath when hurrying on level ground or walking up a slight hill. 2 On level ground, I walk slower than people of the same age because of breathless, or have to stop for breath when walking at my own pace. 3 I stop for breath after walking 100 yards or after a few minutes on level ground. 4 I am too breathless to leave the house or I am breathless when dressing. Respiratory Problems: Yes: Able to Speak in Full Sentences, Dyspnea with Activity No: Retain Secretions, Limited Range of Motion, Chest Pain, Wheezing, Ankle Swelling, Hoarseness, Anxiety, Panic, Dyspnea at Rest, Dyspnea Lying Down Flat Home Medications: Home Medications Albuterol IH (ProAir) [Proair Hfa (SP)Vent Pts] 2 puff INHALATION Q6H PRN PRN 10/14/18 Aspirin [Aspirin, Baby] 81 mg PO DAILY@0800 10/14/18 Atenolol [Tenormin] 12.5 mg PO 10/14/18 Budesonide/Formoterol Fumarate [Symbicort 160-4.5 Mcg Inhaler] 6 gm IH 10/14/18 Dexlansoprazole [Dexilant] 30 mg PO DAILY 10/14/18 Ezetimibe [Zetia] 10/14/18 Fluticasone/Umeclidin/Vilanter [Trelegy Ellipta 100-62.5-25] 10/14/18 Losartan/Hydrochlorothiazide [Losartan-Hctz 100-25 mg Tab] 1 each PO 10/14/18 Prednisone 20 mg PO PRN 10/14/18 Rosuvastatin Calcium [Crestor] 40 mg PO DAILY 10/14/18 Tiotropium [place] [Spiriva 18 MCG] 1 puff INHALATION DAILY 10/14/18 Allergies/Adverse Reactions: Allergies No Known Allergies Allergy (Verified 10/14/18 09:03) - Secretions Thick:: No Thin:: Yes Amount/Day:: 1 TSP A.T.C.: Yes Hx of Sleep Apnea: No Do you snore loudly (louder than talking or can be heard through closed doors)?: Yes - JUST WENT FOR A SLEEP STUDY TEST HAVEN'T HEARD RESULTS Do you often feel tired/ fatigued/ sleepy during daytime?: Yes Has anyone observed you stop breathing during sleep?: Yes - NOCTURNAL HYPOXIA, USES OXYGEN AT NIGHT History of Hypertension (for STOP score): Yes STOP Results: Positive Medical Utilization Do you use a peak flow meter at home?: No Do you use a spacer device with your inhalers?: Yes Number of hospital visits in the last year?: 2 - [place] and [facility]; breathing Number of emergency room visits in the last year?: 2 Do you see your physician on a regular schedule?: Yes How often?: Right now set up on 6 months routine at [facility] Advanced Directives - Advanced Directives 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 Living Will: Yes Advance Directives Information Provided: No Advance Directives on File: No DNR Order?:: No - MOLST See MOLST form: No Past Medical History Medical History: Past Medical History (Last Updated 10/14/18 @ 09:11 by Rogelio Izquierdo CRT, JR, BS) Coronary artery disease I25.10 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 VARGHESE (obstructive sleep apnea) G47.33 Skin cancer of nose C44.301 Hypertension I10 Surgical History: Past Surgical History (Last Updated 10/14/18 @ 09:11 by Rogelio Izquierdo CRT, JR, BS) 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 Family History: Family History (Last Updated 10/14/18 @ 09:12 by Rogelio Izquierdo CRT, JR, BS) Other COPD (chronic obstructive pulmonary disease) Cancer Emphysema of lung - Current/ Previous Services Pulmonary Rehab:: No Social History - Smoking History Smoking Status: Former smoker Years Smokin Packs Smoked per Day: 2 Hx Smoking Cessation Date: 2003 at time of CABG Hx Tobacco Use: Yes Hx Smoking Exposure: No - Alcohol Use Alcohol Usage: Yes - once in a great while, nothing in the past 5 months - Substance Abuse Hx Substance Use: No - Occupation Occupation (List type of work in comments):: Retired - Hobbies, Recreation, Social Activities Hobbies: Sports, Other - outdoor activities Recreational Activities: I am able to engage in most, but not all activities Functioning ADL/IADL - Current Ability Current Ability: Independent Self-Care (e.g.,grooming, dressing, & bathing), Independent Ambulation, Independent Transfer, Independent Household tasks (e.g., light meal prep, laundry, shopping) - Pt Functioning Prior to Problem Prior Functioning: Self-Care (e.g.,grooming, dressing, & bathing): Independent, Ambulation: Independent, Transfer: Independent, Household tasks (e.g., light meal prep, laundry, shopping): Independent Social Environment - Status Marital Status: - Current Living Arrangements Living Environment:: Alone - Children How many children do you have?: 3 Do any of your children live nearby?: Yes - all within 20-30 miles range - Safety Do you feel safe in your surroundings?: Yes - Assistance Do you need any assistance at home?: none Review of Systems Review of Systems: Right click = Denies (Slash). Left click = Reports (Machipongo) Respiratory: Reports: SOB at Rest, SOB upon Exertion, Appetite, Normal, Fatigue, Sleep, Normal. Denies: Cough, Wheezing, Dizziness/Lightheadedness Is Patient Pain Free?: No Pain Location: none Pain Level: 0/10 Risk Factor Assessment - Chief Complaint Chief Complaint: Patient presents to our [facility] today for his COPD and emphysema. Patient has been referred by the [facility] for 36 sessions/12-weeks to assist the patient in regaining his normal activities. - Vital Signs Temperature: 98.7 F Pulse Rate: 84 Pulse Rhythm: Regular Respiratory Rate: 14 Pulse Ox: 93 Blood Pressure: 124/76 - Diabetes Nutrition Referral for Diabetes: No - Obesity Height: 5 ft 11 in Weight:: 250 lb Weight in Pounds: 250.0 lbs Weight Source: Estimated by Patient Body Mass Index (BMI): 34.8 Nutritional Referral for Obesity: No - Physical Activity Physical Inactivity: Recreational activity - mowing grass, working out in the yard - Risk Stratification Risk Guidelines: Lowest Risk: Risk Factor for Smoking, Risk Factor for Dyslipidemia, Risk Factor for Diabetes, Risk Factor for Hypertension, Risk Factor for Sedentary Lifestyle, Risk Factor for Depression, Highest Risk: Risk Factor for Obesity - For Smoking Smoking Risk Guidelines: Smoking Low Risk: None or quit greater than 6 months ago. Smoking Moderate Risk: Smoker or quit 6 months or less ago. Smoking High Risk: Smoker - For Dyslipidemia Dyslipidemia Risk Guidelines: Low Risk: Moderate Risk: High Risk: 15-25% fat 25.1-29% fat >/= 30% fat. <7% sat fat 7-9% sat fat >9% sat fat. <150 mg chol 150-299 mg chol >/= 300 mg chol. LDL <100 LDL 100-129 LDL >/= 130. Chol/HDL ratio <5.0 Chol/HDL ratio 5.0-6.0 Chol/HDL ratio >6.0. Triglycerides <100 Triglycerides 100-149 Triglycerides >/= 150 - For Diabetes Mellitus Diabetes Risk Guidelines: Diabetes Low Risk: HgA1c <6.5% and/or FBG <120. Diabetes Moderate Risk: HgA1c 6.6-7.9% and/or FBG 120-180. Diabetes High Risk: HgA1c >/= 8% and/or FBG >180 - For Obesity/Overweight Obesity/Overweight Risk Guidelines: Obesity Low Risk: BMI <25.0. Obesity Moderate Risk: BMI 25-29.9. Obesity High Risk: BMI >/= 30.0 - For Hypertension Hypertension Risk Guidelines: Hypertension Low Risk: Systolic <120 and Diastolic <80. Hypertension Moderate Risk: Systolic 120-139 and Diastolic 80-89. Hypertension High Risk: Systolic >/= 140 and Diastolic >/= 90 - For Sedentary Lifestyle Sedentary Lifestyle Risk Guidelines: Sedentary Lifestyle Low Risk: >/= 1,500 kcal/week. Sedentary Lifestyle Moderate Risk: 700-1,499 kcal/week. Sedentary Lifestyle High Risk: < 700 kcal/week - For Depression Depression Risk Guidelines: Depression Low Risk: Not clinically depressed. Depression Moderate Risk: Mildly depressed. Depression High Risk: Clinically depressed Motivation - Motivation to Participate On a scale of 1 to 10, how prepared are you to commit to attending program?: 7 What do you see as the benefits of succesfully completing the program? In other words, what do you hope to get out of participating in the program?: get better, lose some weight Are there issues you are dealing with that will interfere with completing the program?: distance Do you have a spouse or signficant other, family or friends who will help support you to complete the program?: yes Diagnostic Data Review - 6 Minute Walk Test 6 Minute Walk Test: 500 feet
[2018-10-14 09:25] VITALS: BP 124/76; PULSE 84; RESP 14; TEMP 37.1; O2SAT 93; BMI 34.8
--- NOTE | 2018-10-14 09:26 | PCM.PR.TP ---
General Information - General Information Admitting Diagnosis: Emphysema, COPD Gold Classification:: GOLD 2: Moderate Oxygen: oxygen nocturnal - Education/Goals Barriers to Learning: None Individual Counseling: Initial Assessment: Dyspnea control techniques at rest, activity, and ADLs, Inhaled and respiratory medications, ADL management and pacing, Nutrition & weight management Patient Goals: Breathe better: Initial Assessment, Increase endurance/stamina: Initial Assessment, Improve diet and nutrition: Initial Assessment, Improve weight: Initial Assessment Exercise - Initial Assessment - Visit Date of Eval: 10/14/18 - Problem/Goals Problems: Deconditioning, No regular exercise, Knowledge deficit exercise guidelines, Knowledge deficit exercise safety Goals:: WA: 2-3/wk - Physician Prescribed Exercise Modalities: Treadmill, Rower, Airdyne Intensity: 60-80% age predicted maximum heart rate reserve METs - Progression: 0.5-1.0 MET, RPE 11-14 WEEK: 2.5 Target Heart Rate:: 98-126 - Plan Plan and Plan to Review:: Benefits of exercise, Core components of exercise, How to measure dyspnea level, How to monitor dyspnea level, Exercise intensity, Exercise safety guideline, Home exercise guidelines, Glen: 3-4/-13 Disease Management - Initial - Problems/Goals-Hypoxemia Hypoxemia Problems:: Hypoxemia Hypoxemia Goals:: Using O2 as Rx's safely - Problems/Goals-Medications Medication Goals: Adherence to prescribed medications, Correct technique/timing & care of MDI, DPI, nebulizer, and spacer. - Problems/Goals-Bronchial Hygiene Bronchial Hygiene Problems:: Respiratory infection Prevention/Management - Initial Assessment SpO2:: 93 FiO2:: 21 Does pt report taking home meds as prescribed?: Yes Medications: Yes MDI, Yes DPI, Yes NEB, No Spacer - only uses with rescue inhaler Patient Reports:: Non-productive cough - Plans Hypoxemia Plan:: Monitor SpO2 rest & with exercise, Train appropriate O2 use with exercise, Train O2 safety & systems Reviewed prescribed medications:: Purpose, Schedule, Side effects, Importance of compliance Instruct correct technique/timing & care:: MDI, DPI, Return demo use of inhaler Bronchial Hygiene Plan: Controlled cough, Vibratory PEP device, Role of exercise in secretion clearance, Hydration, Hand hygiene, Signs/symptoms to report: Psychosocial - Initial Assess - Problems/Goals Problems: Impaired Q.O.L. Psychosocial Goals: Improved Q.O.L. - Psychosocial Test Depression:: Impaired QOL Referred to MD for counseling:: No - Plan Reviewed screening results: Yes Instructions given regarding:: Benefits of exercise, Relaxation techniques, Training in coping strategies Tobacco - Initial Assessment - Program Goals Tobacco Program Goals: Complete smoking cessation. Attend education classes. Improve Knowledge Test score - Stage of Change Stages of Change:: Action - Learning Barriers Learning Barriers: Ready to Learn - Family Support Do you have family support?: Yes - Tobacco Use Tobacco Use: Non-smoker How long ago did you quit using tobacco products?: Greater than or equal to 6 months ago Years Smokin Do you use smokeless tobacco?: No - Intervention Smoking Cessation Referral:: No Individual Education/Counseling:: No Education Schedule Given:: Yes - Education Gave Education Materials For:: Pulmonary Disease, Risk Factors, Breathing Techniques, Medical Compliance, Pulmonary A&P, Exacerbation Signs & Symptoms, Stress & Relaxation Nutrition/Wt Mgmt - Initial - Problems/Goals Problems: Overweight Goals: Wt Loss 1-2 lbs per week - Weight Management Knowledge Deficit Management of:: Overweight Admit Height:: 5 ft 11 in Admit Weight:: 243 lb Admit BMI:: 33.9 - Diabetes Diabetes:: No Insulin: No Do you monitor your blood sugar at home?: No - Intervention Referral to dietitian:: No Referral to Diabetic Clinic:: No Will attend diet classes:: Yes - Plan Nutrition Plan: Yes Review BMI or WC & identify target wt & strategies for wt control, Yes Nutrition education class:, Yes Weight control education class:, Yes Education re: Need for ongoing weight monitoring COPD Knowledge Test Initial COPD is a lung disease that:: Makes it hard to breathe & gets worse over time In the [place] the term COPD describes 2 main lung conditions:: Emphysema & chronic bronchitis The most common lung irritant that causes COPD is:: Cigarette smoke Common signs and symptoms of COPD include:: An ongoing cough/cough that produces a large amount of mucus, & SOB If you have COPD, what steps can you take?: All of the above Swelling of the ankles is common in COPD:: False Fatigue [tiredness] is common in COPD:: True Wheezing is common in COPD:: True Crushing chest pain is common in COPD:: False Rapid weight loss is common in COPD:: False Breathlessness is a normal response to exercise: True Exercise should be avoided if it makes you short of breath: True All bronchodilators act within 10 minutes: True A spacer device increases the medication to the lungs: True Annual flu vaccine is recommended for pts w/lung disease: True COPD Knowledge Test Total Score:: 13 COPD Assessment Test [CAT] - Questions Never cough = 0, Cough all the time = 5: 1 No phlegm = 0, Chest full of phlegm = 5: 2 No chest tightness = 0, Chest very tight = 5: 2 No breathless w/exertion = 0, Very breathless w/exertion = 5: 2 No limitations w/activity = 0, Very limited w/activity = 5: 2 Confident leaving home = 0, Not at all confident = 5: 3 Sleep soundly = 0, Don't sleep soundly = 5: 2 Lots of energy = 0, No energy at all = 5: 3 Total CAT score:: 17 Self-Efficacy Initial Assessment We would like to know how confident you are in doing certain activities. Please select your confidence level for:: Select your confidence level for the following using the scale 1-10 where 1 is not at all confident and 10 is totally confident. Your score is the average of all 6 responses. Fatigue: How confident are you that you can keep the fatigue caused by your disease from interfering with the things you want to do? Select Number: 7 Physical Discomfort or Pain: How confident are you that you can keep the physical discomfort or pain of your disease from interfering with the things you want to do? Select Number: 7 Emotional Distress: How confident are you that you can keep the emotional distress caused by your disease from interfering with the things you want to do? Select Number: 7 Other Symptoms or Health Problems: How confident are you that you can keep other symptoms or health problems from interfering with the things you want to do? Select Number: 7 Different Tasks and Activities: How confident are you that you can do the different tasks and activities needed to manage your health condition so as to reduce your need to see a doctor? Select Number: 7 Medication: How confident are you that you can do things other than just taking medication to reduce how much your illness affects your everyday life? Select Number: 5 Total Score:: 6 Nutrition Survey - Nutrition Survey Instructions Scoring Instructions: Scoring is as follows: Yes = 1 points. No = 0 point. Patient score that is >/=12 is considered to be at potential nutritional risk and could benefit from a referral to a registered dietitian. - Nutrition Survey Initial Have you lost >10 lbs over the past 2 months without trying?: No Are you following a special diet at home for diabetes, low fat, or low salt?: No Are you interested in meeting with a dietitian for help understanding your diet?: No Do you eat less than 3 meals a day?: No Do you eat fatty meats (keating, sausage, ribs, etc), fried foods, desserts, large amounts of salad dressings, margarine, butter, or cheese most days?: Yes Do you have food allergies? [Enter types in comment field]: No Do you eat in restaurants more than 3 times a week?: No Do you season food with salt, seasoning salt, or garlic salt?: Yes Do you used canned, boxed, frozen meals, or soups, seasoning packets?: Yes Total Score:: 3
[2018-10-14 09:51] VITALS: O2SAT 93; BMI 33.9
--- NOTE | 2018-10-14 09:52 | PCM.PR.DAT ---
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 Effective Feb 15, 2013 our hours will be changing to 8:00 to 4:30 on Saturday, Saturday and Saturday. First Date of the Month: 10/14/18 Last Date of the Month: 11/14/18
== END ==
PROVIDERS: Family Provider Internal Medicine; PCP Internal Medicine
DX: J43.9 Emphysema, unspecified (principal); Z87.891 Personal history of nicotine dependence

== ENCOUNTER 2018-11-14 08:00 | Outpatient (RCR) | payer OTHER, SELFPAY ==
[2018-10-14 09:25] VITALS: BMI 34.8
== END 2018-11-14 23:59 ==
LOC: PR 08:00
PROVIDERS: Family Provider Internal Medicine; PCP Internal Medicine
DX: J43.2 Centrilobular emphysema (principal)
CPT/HCPCS: 97150; G0424

== ENCOUNTER 2018-12-10 08:00 | Outpatient (RCR) | payer OTHER, MEDICAID, SELFPAY ==
[2018-10-14 09:51] VITALS: BMI 33.9
--- NOTE | 2018-12-12 07:10 | PR.ITP_ITS ---
Exercise - 60-Day Assessment - Physician Prescribed Exercise Modalities: Treadmill, Rower, Airdyne, NuStep, SciFit Intensity: 60-80% age predicted maximum heart rate reserve Aerobic Exercise [30-60 min 3-7x/week]:: Progressing Target heart rate: 98-126 w/ Max HR 84 Glen-14 METs - Progression: 0.5-1.0 MET, RPE 11-14 WEEK: 4.5 - Home Exercise Home Exercise:: Yes Frequency:: daily Time (minutes):: 30 - Daily activities, mowing, etc. Disease Management - 60-Day - Medications Medication list reviewed:: Yes Taking medications 100% of the time:: Met Medication reassessment: Yes Pt demonstrates correct technique timing for MDI, Yes Pt demonstrates correct technique timing for DPI, Yes Pt demonstrates correct technique timing for NEB, Yes Pt demonstrates correct technique timing for spacer - Bronchial Hygiene Bronchial Hygiene Plan: Yes Pt demonstrates correctly for effective cough, Yes Pt demo correct for device, Yes Pt demo correct for hand hygiene, Yes Pt demo correct for evalute sputum, Yes Pt demo correct for verbalize when to call MD Psychosocial - 60-Day - Assessment Depression reassess: Management of stress: Met, Management of depression: Met, Practicing interventions: Met Tobacco - 60-Day Assessment - Stage of Change Stages of Change:: Action - Learning Barriers Learning Barriers: Participates in education - Family Support Do you have family support?: Yes - Tobacco Use Tobacco Use: Non-smoker Do you use smokeless tobacco?: No - Intervention Individual Education/Counseling:: Yes - Education Gave Education Materials For:: Pulmonary Disease, Risk Factors, Breathing Techn iques, Medical Compliance, Pulmonary A&P, Exacerbation Signs & Symptoms, Stress & Relaxation Nutrition/Wt Mgmt - 60-Day - Weight Management Weight:: 113.852 kg Weight Goals Progress:: Not progressing Self-Efficacy 60-Day Re-eval Assessment We would like to know how confident you are in doing certain activities. Please select your confidence level for:: Select your confidence level for the following using the scale 1-10 where 1 is not at all confident and 10 is totally confident. Your score is the average of all 6 responses. Fatigue: How confident are you that you can keep the fatigue caused by your disease from interfering with the things you want to do? Select Number: 8 Physical Discomfort or Pain: How confident are you that you can keep the physical discomfort or pain of your disease from interfering with the things you want to do? Select Number: 8 Emotional Distress: How confident are you that you can keep the emotional distress caused by your disease from interfering with the things you want to do? Select Number: 8 Other Symptoms or Health Problems: How confident are you that you can keep other symptoms or health problems from interfering with the things you want to do? Select Number: 8 Different Tasks and Activities: How confident are you that you can do the different tasks and activities needed to manage your health condition so as to reduce your need to see a doctor? Select Number: 8 Medication: How confident are you that you can do things other than just taking medication to reduce how much your illness affects your everyday life? Select Number: 7 Total Score:: 7
== END 2018-12-14 23:59 ==
LOC: PR 08:00
PROVIDERS: Family Provider Internal Medicine; PCP Internal Medicine
DX: J43.2 Centrilobular emphysema (principal)
CPT/HCPCS: 97150; G0424

== ENCOUNTER 2019-01-12 08:00 | Outpatient (RCR) | payer MEDICARE, OTHER, SELFPAY ==
[2018-10-14 09:51] VITALS: BMI 33.9
== END 2019-01-14 23:59 ==
LOC: PR 08:00
PROVIDERS: Family Provider Internal Medicine; PCP Internal Medicine
DX: J43.2 Centrilobular emphysema (principal)
CPT/HCPCS: 97150; G0424

== ENCOUNTER → 2020-03-09 10:28 | Outpatient (CLI) | payer OTHER, SELFPAY ==
[2020-02-18 09:30] VITALS: BMI 36.3
--- NOTE | 2020-03-11 08:34 | PFT ---
INTRODUCTION: The patient is a 69-year-old male that presents for pulmonary function studies secondary to a diagnosis of COPD. Respiratory therapy reports good patient effort. Bronchodilators were used during testing. INTERPRETATION: Forced expiration spirometry demonstrates the presence of a moderate large airways obstructive ventilatory defect. There was no significant response to aerosolized bronchodilators. Spirograms are of good quality and do not plateau indicating slow emptying of the lungs. Body plethysmography was performed and reveals lung volumes to be within normal limits. Diffusing capacity by single breath CO is also within normal limits. IMPRESSION: Irreversible moderate large airways obstructive ventilatory defect with preserved lung volumes and diffusing capacity at the lower limits of normal.
== END ==
PROVIDERS: PCP Internal Medicine; Referring Provider Internal Medicine Critical Care Medicine; Visit Provider Internal Medicine Critical Care Medicine
DX: J41.1 Mucopurulent chronic bronchitis (principal)
CPT/HCPCS: 94060; 94726; 94729

== ENCOUNTER → 2020-03-11 12:22 | Outpatient (CLI) | payer OTHER, SELFPAY ==
[2020-02-18 09:30] VITALS: BMI 36.3
[2020-03-11 13:01] VITALS: PULSE 70; PULSE 74; PULSE 77; PULSE 79; PULSE 80; PULSE 83; O2SAT 88; O2SAT 89; O2SAT 90; O2SAT 91; O2SAT 93; O2SAT 94
--- NOTE | 2020-03-11 13:05 | CPS ---
PATIENT'S SPO2 HIT 88% BRIEFLY THEN INCREASED. HE WAS ASYMPTOMATIC AND DECLINED PLACEMENT OF OXYGEN AT THAT TIME. WALK CONTINUED WITH SPO2 STAYING ABOVE 88%. (HE HAS NOCTURNAL O2 W PAP THROUGH [facility])
--- NOTE | 2020-03-13 06:10 | WT_ITS ---
PSN 6 Minute Walk Test - 6 Minute Walk Test 6 Minute Walk Test: 6 Minute Walk Test PSN:6-Minute Walk Test Start: 03/11/20 13:00 Freq: Status: Active Protocol: [id number].6MINW Document 03/11/20 13:01 [facility] (Rec: 03/11/20 13:05 [facility] [id number]) 6 Minute Walk Test Date Performed 03/11/20 Time Performed 12:45 Height 5 ft 11.5 in Weight: 260 lb Weight in Pounds 260.[address]: Jonathan Riojas Assistive device used: None Pre-test Oxygen Delivery Method Room Air Pulse Ox (%) 94 Pulse Rate (60-100 beats/min) 70 Dyspnea Glen Scale (0-10) 0 1st minute Oxygen Delivery Method Room Air Pulse Ox (%) 93 Pulse Rate (60-100 beats/min) 79 Dyspnea Glen Scale (0-10) 0 Number of Rests Taken 0 2nd minute Oxygen Delivery Method Room Air Pulse Ox (%) 88 Pulse Rate (60-100 beats/min) 80 Dyspnea Glen Scale (0-10) 1 Number of Rests Taken 0 3rd minute Oxygen Delivery Method Room Air Pulse Ox (%) 90 Pulse Rate (60-100 beats/min) 77 Dyspnea Glen Scale (0-10) 1 Number of Rests Taken 0 4th minute Oxygen Delivery Method Room Air Pulse Ox (%) 90 Pulse Rate (60-100 beats/min) 80 Dyspnea Glen Scale (0-10) 1 Number of Rests Taken 0 5th minute Oxygen Delivery Method Room Air Pulse Ox (%) 89 Pulse Rate (60-100 beats/min) 83 Dyspnea Glen Scale (0-10) 1 Number of Rests Taken 0 6th minute Oxygen Delivery Method Room Air Pulse Ox (%) 91 Pulse Rate (60-100 beats/min) 83 Dyspnea Glen Scale (0-10) 1 Number of Rests Taken 0 Post-test Oxygen Delivery Method Room Air Pulse Ox (%) 94 Pulse Rate (60-100 beats/min) 74 Dyspnea Glen Scale (0-10) 0 Full Laps Walked 17 Partial Lap, Number of Tiles Walked 12 Total Distance Walked (ft) 1015 - Interpretation Interpretation: The patient ambulated 1015 feet over the course of 6 minutes beginning on room air without assistive devices or breaks. Pretesting oxygen saturation was noted to be 94% on room air. With ambulation, the lynette oxygen saturation was 88% at minute 2 of testing. The patient declined to have oxygen placed on him at that time. This testing is indicative of a respiratory limitation to exercise tolerance. - Recommendations Recommendations: Exertional supplemental oxygen would be indicated based upon the results of testing. However, the patient declined to have oxygen placed on him during the test.
== END ==
PROVIDERS: PCP Internal Medicine; Referring Provider Internal Medicine Critical Care Medicine; Visit Provider Internal Medicine Critical Care Medicine
DX: G47.33 Obstructive sleep apnea (adult) (pediatric) (principal)
CPT/HCPCS: 94618

== ENCOUNTER → 2022-09-14 | Outpatient (CLI) | payer OTHER, SELFPAY ==
--- NOTE | 2022-09-18 17:40 | PFTCOMP_ITS ---
[facility] Pulmonary Laboratory [place], [place] Date of Study: 09/14/2022 Study Type: Complete pulmonary function testing Indication: COPD Current inhaled medications: Albuterol 2 puffs every 6 hours as needed, fluticasone/umeclidinium/vilanterol Referring physician: Jonathan Riojas MD Spirometry pre and postbronchodilator show: 1. Mild large airway obstruction, which did not change significantly post- bronchodilator. 2. No significant response to bronchodilator. 3. Compared to pulmonary function testing dated 03/09/2020, the forced vital capacity improved by 25%, the FEV1 improved by 28%, the FEF 2575% improved by 30%. This is a significant improvement. 4. The test met [place] [employer] standards of spirometry. The liquified natural gas technician indicated a good patient effort. Lung volume studies by plethysmography show: 1. Normal lung volumes. The total lung capacity is 105% predicted. 2. No evidence of hyperinflation. 3. Compared to March 09, 2020, the total lung capacity improved by 12%, and the residual volume decreased by 6%. This is a significant improvement. Diffusing capacity by single breath carbon monoxide technique shows: 1. Normal gas exchange at baseline, and 1 adjusted for lung volumes. 2. Compared to 03/09/2020, the DLCO improved by 4%. This is not a clinically significant change. Kelvin Freitas MD [facility] [place]
== END | disposition home or self-care (01) ==
LOC: PSN 09:19
PROVIDERS: PCP Internal Medicine; Referring Provider Internal Medicine Critical Care Medicine; Visit Provider Internal Medicine Critical Care Medicine
DX: J44.1 Chronic obstructive pulmonary disease with (acute) exacerbation (principal)
CPT/HCPCS: 94060; 94726; 94729